=== PATIENT | male | born 1955 | race Caucasian/White ===

== ENCOUNTER 2016-05-06 12:56 | Inpatient (IN) | payer OTHER ==
[~2016-05-06] VITALS: Ht 152.4 cm; Wt 87.3 kg
[~2016-05-06 12:56] MED LIST: CARDIZEM30 MG PO; ECO81 PO; LASIX20 MG PO; METFORMIN HCL850 MG PO; TOP50 PO
--- NOTE | 2016-05-06 13:09 | NUR ---
EKG DONE IN TRIAGE
--- NOTE | 2016-05-06 13:30 | NUR ---
PT CAME TO ED TODAY W/ COMPLAINT OF SHARP LEFT-SIDED CHEST PAIN SINCE YESTERDAY MORNING. PT ALSO COMPLAINING OF DIZZINESS AND HEADACHE TO TOP OF HEAD/OCCIPUT. NO NEURO DEFECITS NOTED. LUNGS CLEAR TO AUSCULTATION. PT FOUND TO BE IN A-FIB RVR ON TRIAGE EKG. PT PLACED ON FULL MONITORS W/ O2 AND IV ACCESS ESTABLISHED. PT A&O X 4, SPEAKING IN FULL SENTENCES W/ CLEAR SPEECH. BREATHING EVEN AND UNLABORED. NO VISUAL SIGNS OF RESP DISTRESS NOTED.
--- NOTE | 2016-05-06 13:42 | NUR ---
RADIOLOGY AT BEDSIDE FOR CXR.
[2016-05-06 13:44] LABS: BASOPHIL % 0.6 % (0-2); PLATELET COUNT 133 x10^3mcL (130-400); RED CELL DISTRIBUTION WIDTH 13.6 % (11.5-14.5)
--- NOTE | 2016-05-06 13:48 | NUR ---
REPORT GIVEN TO RIANNA Morocho RN, AND CARE ENDORSED FOR THIS PT.
[2016-05-06 13:54] LABS: CALCIUM 8.9 mg/dL (8.5-10.1); CARBON DIOXIDE 28.3 mmol/L (21-32); CHLORIDE SERUM 99 mmol/L (98-107); CREATININE SERUM 1.2 mg/dL (0.7-1.3); GFR1 > 60 mL/min; GLUCOSE SERUM 374 mg/dL (74-106); POTASSIUM SERUM 3.9 mmol/L (3.5-5.1); SODIUM SERUM 135 mmol/L (136-145)
[2016-05-06 14:06] LABS: ALKALINE PHOSPHATASE 93 U/L (46-116); ALT/SGPT 35 U/L (16-63); AST/SGOT 36 U/L (15-37); BILIRUBIN TOTAL 0.82 mg/dL (0.20-1.00); FREE T4 1.07 ng/dL (0.76-1.46); LIPASE 178 IU/L (73-393); MAGNESIUM 1.7 mg/dL (1.8-2.4); TOTAL PROTEIN, SERUM 7.9 g/dL (6.4-8.2)
[2016-05-06 14:07] LABS: ALBUMIN 3.3 g/dL (3.4-5.0)
--- NOTE | 2016-05-06 14:36 | NUR ---
PT DENIES ANY PAIN AT THIS TIME, MEDICATIONS ADMINISTERED PER MD ORDER, PLEASE SEE EMAR, PT TOLERATED WELL, PT PROVIDED URINE WITH URINAL, URINE COLLECTED, PT IN NO ACUTE DISTRESS, CALL LIGHT WITHIN REACH, WILL CONTINUE TO MONITOR
[2016-05-06 15:15] LABS: AMPHETAMINE QUAL UR NONE DETECTED (NEG <=1000)
--- NOTE | 2016-05-06 15:18 | NUR ---
RESIDENT AT BEDSIDE FOR EVAL
[2016-05-06 15:30] LABS: UA SPECIFIC GRAVITY 1.025 (1.005-1.035); microscopic required? YES; urine erythrocyte NEGATIVE (NEGATIVE)
[2016-05-06 15:47] LABS: CHOLESTEROL/HDL RATIO 4.8
[2016-05-06 15:55] LABS: T3 TOTAL 0.93 ng/mL
[2016-05-06 15:57] LABS: FREE T4 1.13 ng/dL (0.76-1.46); FREE THYROXINE INDEX 2.2 ug/dL (1.4-4.5)
--- NOTE | 2016-05-06 16:03 | NUR ---
MEDICATION ADMINISTERED PER MD ORDER, PLEASE SEE EMAR, PT TOLERATED WELL, URINAL PROVIDED AT BEDSIDE, CALL LIGHT WITHIN REACH, WILL CONTINUE TO MONITOR
--- NOTE | 2016-05-06 16:11 | NUR ---
REPORT GIVEN TO OVIDIO MARTINS TELE FLOOR TO ASSUME CARE OF PT AFTER TRANSPORT
[2016-05-06 16:48] VITALS: BP 108/79
--- NOTE | 2016-05-06 16:53 | NUR ---
REC'D AOX4, SPEECH CLEAR. DENIES DIZZINES LYNN JOHNSON. ATTACHED TELE 1, AFIB HR 110. DENIES CHEST PAIN. ON 2L VIA NC, NO SOB NOTED. SKIN INTACT. IV SITE WNL. ORIENTED PT TO ROOM AND SURROUNDINGS. CALL LIGHT WITHIN REACH, PROVIDED REPORT TO ELIEZER NOLAN.
--- NOTE | 2016-05-06 17:20 | NUR ---
PATIENT AWAKE, ALERT, NO SIGNS OF DISTRESS NOTED, US TECH AT BEDSIDE. ALL SAFEYT MEASURES IN PLACE AND REVIEWED, WILL CONTINUE TO MONITOR.
[2016-05-06 19:45] VITALS: BP 105/73
--- NOTE | 2016-05-06 19:45 | NUR ---
RECEIVED Pt AAOX4 CALM AND COOPERATIVE WITH CARE. DENIES ANY CHEST PAIN. B/P 105/73 HR 52. LUNG SOUNDS ARE CTA BILATERALLY, PULSE OX IS 97% ON ROOM AIR, NO SOB NOTED. ACTIVE BOWEL SOUNDS X4 QUADS. DENIES ANY ABDOMINAL DISCOMFORT. VOIDS FREELY. DRY HANDS NOTED. IV TO LAC IS PATENT. RADIAL AND PEDAL PULSES ARE PRESENT. MOVES ALL EXTREMITIES, NO EDEMA NOTED. RE-ORIENTED TO ROOM AND CALL LIGHT SYSTEM WITHIN EASY REACH. WILL CONTINUE TO MONITOR.
--- NOTE | 2016-05-06 20:00 | NUR ---
I HAVE REVIEWED THE DATA COLLECTION BY SANJAY (NAME):DAVID ADAMS. ENTERED ON (DATE/TIME): I CONCUR WITH THE DATA AND ANY EXCEPTIONS OR COMMENTS ARE LISTED BELOW:
--- NOTE | 2016-05-06 20:00 | NUR ---
PATIENT'S PLAN OF CARE WAS DISCUSSED AND REVIEWED WITH TIMBER FRAMER HELPER:DAVID ADAMS.
[2016-05-07] VITALS (7 sets, daily range): BP systolic 97–116; BP diastolic 63–77
--- NOTE | 2016-05-07 01:42 | NUR ---
Pt RESTING COMFORTABLY. NO DISTRESS NOTED. WILL CONTINUE TO MONITOR.
--- NOTE | 2016-05-07 05:12 | NUR ---
NO SIGNIFICANT CHANGES NOTED OVERNIGHT. NO FURTHER C/O CHEST PAIN OR SOB. Pt REMAINS IN ROOM AIR. VOIDED FREELY. NO NEED TO MEDICATE FOR PAIN. SAFETY AND COMFORT MEASURES REMAIN IN PLACE. WILL CONTINUE TO MONITOR.
[2016-05-07 06:08] LABS: BASOPHIL % 0.4 % (0-2); RED CELL DISTRIBUTION WIDTH 13.9 % (11.5-14.5)
[2016-05-07 06:25] LABS: CALCIUM 8.5 mg/dL (8.5-10.1); CARBON DIOXIDE 27.4 mmol/L (21-32); CHLORIDE SERUM 101 mmol/L (98-107); CREATININE SERUM 0.9 mg/dL (0.7-1.3); GFR1 > 60 mL/min; GLUCOSE SERUM 161 mg/dL (74-106); MAGNESIUM 1.7 mg/dL (1.8-2.4); PHOSPHOROUS 4.6 mg/dL (2.5-4.9); POTASSIUM SERUM 3.2 mmol/L (3.5-5.1); SODIUM SERUM 139 mmol/L (136-145)
[2016-05-07 06:38] LABS: PLATELET COUNT 122 x10^3mcL (130-400)
--- NOTE | 2016-05-07 07:46 | NUR ---
PT IS AWAKE ALERT AND ORIENTED, X4 ABLE TO MAKE NEEDS KNOWN. TELE 1 NO COMPLAINTS OF CP AT THIS TIME. KOREAN SPEAKING. PULSES EQUAL BILATERAL NO EDEMA NOTED. SCDS IN PLACE. PT RESTING COMFORTABLY ON RA, LUNGS CTA. NO C/O N/V. BOWEL SOUNDS ACTIVE IN ALL 4 QUADRANTS. BRP. SKIN IS CDI. NO COMPLAINTS OF PAIN AT THIS TIME. IV TO THE LAC SITE IS WNL. PT IS CALM AND COOPERATIVE WITH CARE, CALL LIGHT IN REACH. JONNA CONTINUE TO MONITOR.
--- NOTE | 2016-05-07 09:33 | NUR ---
ADMINISTERED PTS CP MEDICATION WILL MONITOR LARRY.
--- NOTE | 2016-05-07 11:33 | NUR ---
PTS BP STABLE AT THIS TIME 113/70. CLARIFIED WITH DR MCARTHUR THAT ITS OKAY TO GIVE PT THE INCREASED DOSE OF CARDIZEM. DR PEREZTED THAT HE WOULD CHANGE THE ORDER TO A ONE TIME DOSE OF 30MG SINCE THE PT ALREADY RECIEVED HIS MORNING DOSE. WILL ADMINISTER AND MONITOR BP LARRY.
--- NOTE | 2016-05-07 12:00 | NUR ---
PTS BP REMAINS STABLE 103/65. WILL CONTINUE TO MONITOR, CALL LIGHT IN REACH, PT ENCOURAGED TO USE THE CALL LIGHT WHEN NEEDING ASSISTANCE.
--- NOTE | 2016-05-07 19:25 | NUR ---
PT ALERT AND AWAKE. AOX4. [place]ET[place]ESE SPEAKING WITH CLEAR SPEECH. DENIES ANY SOB. 95% RA. LUNGS CLEAR BILATERALLY. NO S/S OF RESPIRATORY DISTRESS NOTED. DENIES ANY CHEST PAIN. ON TELE #1, AFIB WITH PVCS. NO S/S OF DISTRESS OR DISCOMFORT NOTED. BOWEL SOUNDS ACTIVE. ABDOMEN SOFT AND FLAT. LAST BM 05/07/16. IV TO LEFT AC PATENT AND INTACT. IV INFUSING WELL. NO S/S INFECTION NOTED. NO EDEMA NOTED. PULSES PALPABLE. DENIES ANY PAIN. NO GRIMACING NOTED. SIDE RAILS UP. SCDS IN PLACE. CALL LIGHT WITHIN REACH. WILL CONTINUE TO MONITOR.
--- NOTE | 2016-05-07 19:26 | NUR ---
CARE ENDORCED TO GLOBAL PRESIDENT NURSE, PT STABLE.
--- NOTE | 2016-05-08 00:09 | NUR ---
PT RESTING IN BED WITH EYES CLOSED. BREATHING EQUAL AND UNLABORED. NO S/S OF DISTRESS OR DISCOMFORT NOTED. IV PATENT AND INTACT. IV INFUSING WELL. NO S/S OF INFECTION NOTED. CALL LIGHT WITHIN REACH. WILL CONTINUE TO MONITOR.
--- NOTE | 2016-05-08 03:15 | NUR ---
PT RESTING IN BED WITH EYES CLOSED. BREATHING EQUAL AND UNLABORED. NO S/S OF DISTRESS OR DISCOMFORT NOTED. IV PATENT AND INFUSING WELL. CALL LIGHT WITHIN REACH. WILL CONTINUE TO MONITOR.
--- NOTE | 2016-05-08 05:25 | NUR ---
PT IN BED RESTING WITH EYES CLOSED. NO S/S OF RESPIRATORY DISTRESS NOTED. IV INFUSING WELL. NO S/S OF DISTRESS OR DISCOMFORT NOTED. WILL CONTINUE TO MONITOR.
[2016-05-08 06:23] VITALS: BP 115/62
[2016-05-08 06:27] LABS: BASOPHIL % 0.5 % (0-2); PLATELET COUNT 138 x10^3mcL (130-400); RED CELL DISTRIBUTION WIDTH 13.6 % (11.5-14.5)
[2016-05-08 06:36] LABS: CALCIUM 8.6 mg/dL (8.5-10.1); CARBON DIOXIDE 30.6 mmol/L (21-32); CHLORIDE SERUM 103 mmol/L (98-107); CREATININE SERUM 0.8 mg/dL (0.7-1.3); GFR1 > 60 mL/min; GLUCOSE SERUM 133 mg/dL (74-106); MAGNESIUM 1.6 mg/dL (1.8-2.4); PHOSPHOROUS 4.3 mg/dL (2.5-4.9); POTASSIUM SERUM 3.7 mmol/L (3.5-5.1); SODIUM SERUM 141 mmol/L (136-145)
--- NOTE | 2016-05-08 08:00 | NUR ---
PATIENT IS AWAKE ALERT AND ORIENTED X4. JAPANESE SPEAKING. LUGS CTA, IV SITE WNL. PT COMFORTABLE ON RA NO COMPLAINTS OF CP OR SOB. SKIN CDI. PT ABLE TO MAKE NEEDS KNOWN. FAMILY AT BEDSIDE. CALL LIGHT IN REACH. WILL CONTINUE TO MONITOR
--- NOTE | 2016-05-08 09:12 | NUR ---
PT RESTING COMFORTABLY IN BED NO SIGNS OF DISTRESS. CALL LIGHT IN REACH WILL CONTINUE TO MONITOR.
[2016-05-08 09:38] VITALS: BP 128/85
--- NOTE | 2016-05-08 10:30 | NUR ---
PT UP OOB WALKING AROUND THE ROOM. NO SIGNS OF SOB. WILL CONTINUE TO MONITOR.
--- NOTE | 2016-05-08 15:45 | NUR ---
PT UP WALKING AROUND ROOM, NO SIGNS OF DISTRESS CALL LIGHT IN REACH WILL CONTINUE TO MONITOR.
[2016-05-08 15:48] VITALS: BP 128/85
[2016-05-08] MEDS ORDERED: CAR60 PO (16:05)
[2016-05-08] MEDS ORDERED: XARELTO20 M1 PO (16:05)
[2016-05-08] MEDS ORDERED: ZES5 PO (16:06)
[2016-05-08] MEDS ORDERED: ALDACTONE25 MG PO (16:30)
[2016-05-08] MEDS ORDERED: TOP50 PO (16:30)
== END 2016-05-08 17:40 | disposition home or self-care (01) | DRG 201 ==
LOC: ED 12:56 → DU 15:05
PROVIDERS: Emergency Medicine; Family Medicine; ADMIT Family Medicine
DX: I48.2 Chronic atrial fibrillation (principal); N17.0 Acute kidney failure with tubular necrosis; I50.41 Acute combined systolic (congestive) and diastolic (congestive) heart failure; E11.65 Type 2 diabetes mellitus with hyperglycemia; E87.1 Hypo-osmolality and hyponatremia; D68.69 Other thrombophilia; I11.0 Hypertensive heart disease with heart failure; M94.0 Chondrocostal junction syndrome [Tietze]; E83.42 Hypomagnesemia; R80.8 Other proteinuria; M19.90 Unspecified osteoarthritis, unspecified site; Z95.0 Presence of cardiac pacemaker; Z79.82 Long term (current) use of aspirin; Z68.37 Body mass index [BMI] 37.0-37.9, adult; Z87.891 Personal history of nicotine dependence; Z79.84 Long term (current) use of oral hypoglycemic drugs; Z91.19 Patient's noncompliance with other medical treatment and regimen
CPT/HCPCS: 80307; 82962; 83880; 84439; J1940; J3475; J3490; J7030; Q0092